=== PATIENT | male | born 1955 | race Caucasian/White ===

== ENCOUNTER 2021-04-02 08:20 | Emergency (ER) | payer BC ==
[~2021-04-02] VITALS: Ht 172.7 cm; Wt 84.1 kg
[2021-04-02 08:32] VITALS: TEMP 98.3
[2021-04-02 09:24] LABS: BASO % 0.3 % (0.0-2.0); EOS # 0.1 K/mm3 (0.0-0.7); EOS % 0.7 % (0-4.0); GRAN % 87.1 % (42.2-75.2); HEMATOCRIT 41.9 % (42.0-52.0); HEMOGLOBIN 14.6 g/dl (13.5-18.0); LYMPH # 0.7 K/mm3 (1.2-3.4); LYMPH % 7.3 % (20.0-51.0); MEAN CELL VOLUME 89 fl (80.0-100.0); MEAN CORPUSCULAR HEMOGLOBIN 31 pg (27.0-31.0); MEAN CORPUSCULAR HGB CONC 35 g/dl (33.0-37.0); MONO # 0.4 K/mm3 (0.1-0.6); MONO % 4.4 % (1.7-9.3); PLATELET COUNT 166 K/mm3 (130-400); RED BLOOD COUNT 4.73 M/mm3 (4.20-5.60); REDCELL DISTRIBUTION WIDTH-CV 12.4 % (11.5-14.5)
[2021-04-02 09:41] LABS: BILIRUBIN,TOTAL 0.8 mg/dL (0.2-1.2); C-REACTIVE PROTEIN 1.3 mg/dL (0.00-0.50); CREATININE, serum 0.78 mg/dL (0.72-1.25); TOTAL PROTEIN 6.8 gm/dL (6.2-8.1)
[2021-04-02] MEDS ORDERED: ZITHROMAX 250M250 MG PO (10:16)
[2021-04-02 10:25] VITALS: BP 132/65; PULSE 95
== END 2021-04-02 10:25 | disposition home or self-care (01) ==
LOC: COL.ER 08:20
PROVIDERS: Emergency Medicine
DX: J40 Bronchitis, not specified as acute or chronic (principal); Z20.822 Contact with and (suspected) exposure to COVID-19
CPT/HCPCS: J1885; J7030

== ENCOUNTER 2021-08-19 07:57 | Day surgery (SDC) | payer OTHER ==
[~2021-08-19] VITALS: Ht 175.3 cm; Wt 89.1 kg
[~2021-08-19 07:57] MED LIST: PEPCID 20MG TAB20 MG PO; ZITHROMAX 250M250 MG PO
[2021-08-19 10:33] VITALS: BP 141/75; PULSE 59; TEMP 97.7
[2021-08-19] MEDS ORDERED: NORCO 325 MG-51 TAB PO (13:45)
[2021-08-19 14:20] VITALS: BP 127/81; PULSE 69; TEMP 97.8
--- NOTE | 2021-08-19 14:20 | NUR ---
PT TO BAY 6 PER CART FROM PACU. RECEIVED REPORT FROM EJREMIAH VALLADARES. VS OBTAINED. CALL LIGHT WITHIN REACH. PT REQUESTING SPRITE AND MUFFIN. AT BEDSIDE. PT DENIES ANY PAIN OR DISCOMFORT AT THIS TIME. WILL CONTINUE TO MONITOR PT.
[2021-08-19 14:35] VITALS: BP 130/75; PULSE 73
--- NOTE | 2021-08-19 14:35 | NUR ---
PT TOLERATING SPRITE AND MUFFIN WITHOUT DIFFICULTY. WILL CONTINUE TO MONITOR PT. DENIES ANY OTHER NEEDS AT THIS TIME.
[2021-08-19 14:50] VITALS: BP 126/68; PULSE 67
--- NOTE | 2021-08-19 14:50 | NUR ---
PT CONTINUES TO REST COMFORTABLY. WILL CONTINUE TO MONITOR PT.
[2021-08-19 15:05] VITALS: BP 121/68; PULSE 65
--- NOTE | 2021-08-19 15:05 | NUR ---
PT RESTING. STATES HE WOULD BE READY FOR DISCHARGE IN ABOUT 15 MIN. WILL CONTINUE TO MONITOR PT.
[2021-08-19 15:20] VITALS: BP 122/70; PULSE 68
--- NOTE | 2021-08-19 15:20 | NUR ---
PT READY FOR DISCHARGE.
--- NOTE | 2021-08-19 15:25 | NUR ---
IV DC'D. PT TOLERATED WELL.
--- NOTE | 2021-08-19 15:40 | NUR ---
DISCHARGE EDUCATION COMPLETED WITH PT AND HIS . THEY VERBALIZED UNDERSTANDING OF HOME AND FOLLOW UP CARE. ALL QUESTIONS ANSWERED. DISCHARGE PAPERWORK GIVEN TO PT.
--- NOTE | 2021-08-19 15:50 | NUR ---
PT OFF UNIT PER WHEELCHAIR. PT DISCHARGE TO HOME WITH PER PERSONAL VEHICLE.
== END 2021-08-19 15:50 | disposition home or self-care (01) ==
LOC: SDCO 07:57
DX: C43.62 Malignant melanoma of left upper limb, including shoulder (principal)
CPT/HCPCS: A9520; J0690; J1100; J2250; J2405; J2704; J2795; J3010; J7120; Q9968

== ENCOUNTER → 2022-08-23 | Outpatient (CLI) | payer BC ==
[~2022-08-23] MED LIST changes: +NORCO 325 MG-51 TAB PO
== END ==
LOC: COL.RAD 06:54
DX: C43.62 Malignant melanoma of left upper limb, including shoulder (principal)
CPT/HCPCS: A9520